=== PATIENT | female | born 1985 | race Caucasian/White ===

== ENCOUNTER 2016-04-03 11:58 | Emergency (ER) | payer MEDICAID ==
[~2016-04-03] VITALS: Ht 162.6 cm; Wt 68.0 kg
[~2016-04-03 11:58] MED LIST: BACTRIM DS 8001 TA1 PO; CIPRO 500MG TA500 MG PO; DOXYCYCLINE HY100 M4 PO; ETODOLAC400 MG PO; FLEXERIL10 MG PO; GABAPENTIN300 MG PO; GABAPENTIN400 MG PO; INDOCIN25 M2 PO; KEFLEX 500MG.500 MG PO; LORTAB 5/500 501 TAB PO; MOTRIN400 MG PO; MULTI VITAMINS1 TA1 PO; Mobic7.5 MG PO; NORCO 325 MG-51 TAB PO; PERCOCET 5/3251 EACH PO; PREDNISONE 10MG10 MG PO; PREDNISONE 20MG20 MG PO; PRENATAL GUMMIES; PRENATAL PLUS1 TA1 PO; PYRIDIUM 200MG200 MG PO; RANITIDINE HCL150 MG PO; RANITIDINE150 M1 PO; SEPTRA DS 800 M1 TAB PO; SUBOXONE 2 MG-01 TAB SL; SUBUTEX8 M1 SL; TESSALON PERLE100 MG PO; TRAMADOL 50MG T50 MG PO; TRAMADOL50 M1 PO; VALIUM 5MG TABLE5 MG PO; VOLTAREN75 MG PO; XANAX 1MG TABLET1 MG PO; ZITHROMAX Z PA250 MG PO; ZOFRAN4 MG PO
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
[2016-04-03] MEDS ORDERED: ETODOLAC300 M1 PO (13:20)
[2016-04-03 13:32] VITALS: BP 121/76
== END 2016-04-03 13:33 | disposition home or self-care (01) ==
LOC: ER 11:58
DX: S02.2XXA Fracture of nasal bones, initial encounter for closed fracture (principal); S30.0XXA Contusion of lower back and pelvis, initial encounter; K21.9 Gastro-esophageal reflux disease without esophagitis; Z72.0 Tobacco use

== ENCOUNTER 2016-08-01 20:41 | Emergency (ER) | payer MEDICAID ==
[~2016-08-01] VITALS: Ht 162.6 cm; Wt 68.0 kg
[~2016-08-01 20:41] MED LIST changes: +ETODOLAC300 M1 PO
--- OUTSIDE RECORDS SUMMARY | 2016-08-01 20:52 | External Medical Summary Rpt ---
Author Author , Organization [employer] Address Unknown Phone Unavailable Care Team Providers Care Apartment Property Manager Name Role Phone [facility], [facility] Purpose Continuity of Care Document - 08-27-2012 through 2016 Problems Code Diagnosis DOS Provider Status [id number] [facility] Allergies, Adverse Reactions, Alerts Type Drug Allergy Adverse Reaction to Substance Substance Reaction Severity Penicillin Unknown Unknown Diphenhydramine Unknown Unknown Codeine Unknown Unknown Penicillin V Unknown Unknown Tramadol Unknown Unknown Citalopram DIARRHEA Unknown Vital Signs 08-27-2012 19:18 Name Value Interpretat Reference Comment ion Range BP 86 mm[Hg] Diastolic BP Systolic 122 mm[Hg] Heart 88 /min Rate/Pulse O2% 98 % Respiratory 16 /min Rate Encounters Encounter Start End Date Code Location Performer Type Date Emergency HANSA TRIPATHI MD (ER) 3 17:49 3 19:24 [facility]
--- OUTSIDE RECORDS SUMMARY | 2016-08-01 20:52 | External Medical Summary Rpt ---
Demographics Preferred Language German Marital Status Unknown Yarsani Affiliation Unknown Race Unknown Ethnic Group Unknown Author Author , Organization [employer] Address Unknown Phone Unavailable Purpose Continuity of Care Document - through 2016 Immunization No patient found.
--- OUTSIDE RECORDS SUMMARY | 2016-08-01 20:52 | External Medical Summary Rpt ---
Author Author [employer] Organization [employer] Address Unknown Phone Unavailable Purpose Continuity of Care Document - through 2016
--- OUTSIDE RECORDS SUMMARY | 2016-08-01 20:52 | External Medical Summary Rpt ---
Author Author RENNY Maldonado, [employer] Organization [employer] Address Unknown Phone Unavailable
--- OUTSIDE RECORDS SUMMARY | 2016-08-01 20:52 | External Medical Summary Rpt ---
Demographics Preferred Language Djiboutian Marital Status Unknown Yarsanism Affiliation Unknown Race Unknown Ethnic Group Unknown Author Author , Organization [employer] Address Unknown Phone Unavailable Purpose Continuity of Care Document - through 2016 Immunization No patient found.
--- OUTSIDE RECORDS SUMMARY | 2016-08-01 20:52 | External Medical Summary Rpt ---
Author Author , Organization [employer] Address Unknown Phone Unavailable Care Team Providers Care Senior Treasury Analyst Name Role Phone [facility], [facility] Purpose Continuity of Care Document - 08-27-2012 through 2016 Problems Code Diagnosis DOS Provider Status [id number] [facility] Allergies, Adverse Reactions, Alerts Type Drug Allergy [...] TRIPATHI MD (ER) 3 17:49 3 19:24 [facility]
[2016-08-01] MEDS ORDERED: SUBOXONE 8 MG-21 FIL PO (20:57)
[2016-08-01] MEDS ORDERED: BUPRENORPHINE H1 TAB SL (20:58)
--- NOTE | 2016-08-01 21:00 | Emergency Room Report ---
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 WORSE WITH DEEP RESPIRATION. C/O NAUSEA. NO DIAPHORESIS. 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 N Clinical Suspician of Infection? N Mental Status: 1 - Regular (Normal Baseline) Sepsis Risk:Low Sepsis Risk Have you (or family members/close friends) recently traveled outside the [place]? N If Yes, where/when: Have you had exposure to infectious disease within the past month? N TB? Other? Specify: Source patient, RN notes reviewed, family, old records Exam Limitations no limitations Comment onset about 1 hr ago of ant lt chest pain with no rash or trauma and pain worse with palpatation - no ht disease and was recently rx for cap - Cardiac Chest Pain Chest pain indicative of cardiac No Timing/Duration this evening Severity moderate ALLERGIES Coded Allergies: Penicillins (08/10/15) codeine (08/08/15) diphenhydramine (From BENADRYL) (08/08/15) Home Medications Active Scripts Etodolac 300 MG PO BID #14 CAPSULE Prov: 04/03/16 Reported Medications BUPRENORPHINE HCL/NALOXONE HCL (Suboxone 8 MG-2 MG Sl Film) 8 mg PO BID BUPRENORPHINE HCL/NALOXONE HCL (Buprenorphin-Naloxon 8-2 MG Sl) 1 TAB SL BID #14 Gabapentin 400 MG PO BID History Medical History General CAD? No Angina: No [place]: No Hypertension? No Hyperlipidemia? No CHF? No DVT? No PE? No COPD? No Asthma? No Anemia? No GERD? Yes Gastric ulcers? No GI Bleed? No Hernia? No Thyroid Problems? No Hypothyroidism? No CVA? No Seizures? No Diabetes? No Renal Insuffiency? No End Stage Renal Disease? No UTI? No Stones? No BPH? No GB Disease: No Nephritic Syndrome? No Asplenia? No Hepatitis? Yes Sickle Cell Disease? No Arthritis? No Migraines? No Cataracts? No Glaucoma? No MRSA? No HIV? No TB? No Anxiety? No Depression? No Cancer? Yes Site: OVARIAN CANCER More? 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 Respiratory denies cough, denies shortness of breath, denies wheezing Cardiovascular see HPI, chest pain, denies palpitations, denies syncope Gastrointestinal denies abdominal pain, denies diarrhea, denies vomiting Genitourinary denies: dysuria, frequency, hesitancy, hematuria. Musculoskeletal denies joint pain, denies joint swelling, denies neck pain Skin denies rash Psychiatric/Neurological denies headache, denies seizure Physical Exam Vital Signs Vital Signs Date Time Temp Pulse Resp B/P Pulse O2 O2 Flow FiO2 Ox Delivery Rate 08/01 2246 66 18 103/69 95 / 2214 68 18 103/66 96 08/01 2138 70 18 121/49 95 08/01 2043 97.7 73 18 125/73 95 - WBC >12,000 or <4,000 or 10% bands? 2 or more SIRS Criteria Met? B/P:103/69 MAP:90 Creatinine >2.0? UA output<0.5ml/kg/hr for 2 hrs? Platelet count >100,000? Lactate >2.0mmol/1? INR >1.2 or PTT > than 60 sec? Evidence of Organ Dysfunction? Provider documented clinical suspician of infection? N Sepsis Criteria Count: 0 Sepsis Risk: Low Sepsis Risk General Appearance no apparent distress Eye Exam - bilateral eye PERRL, bilateral eye EOMI Ear, Nose, Throat normal ENT inspection Neck supple Respiratory Status No: respiratory distress. Lung Sounds bilateral: lungs clear. 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 No Results/Orders Laboratory Tests 08/01/162047: Sodium 142, Potassium 4.1, Chloride 104, Carbon Dioxide 32, BUN 7, Creatinine 0.8, Estimated Creat Clear 108, Estimated GFR (MDRD) 83, Glucose 62 L, Calcium 9.1, Total Bilirubin 0.3, AST 86 H, ALT 122 H, Alkaline Phosphatase 90, Creatine Kinase 88, CK-MB (CK-2) Rel Index 0.8, CK and CKMB Interp 0.7, Troponin I < 0.02, Total Protein 7.4, Albumin 3.7, Globulin 3.7 H, Albumin/Globulin Ratio 1.0 L, WBC 9.2, RBC 4.94, Hgb 14.8, Hct 45.2, MCV 91.4, RDW 13.6, Plt Count 190, MPV 6.2 L, Gran % 62.8, Gran # 5.8, Lymphocytes % 30.3, Monocytes % 4.2, Eosinophils % 2.5, Basophils % 0.3, Lymphocytes # 2.8, Monocytes # 0.4, Eosinophils # 0.2, Basophils # 0.0, PUBS MCHC 32.8, MCH 30.0 Current Medication Orders Sig/Tamiko Start time Last Medication Dose Route Stop Time Status Admin Aspirin 325 MG ONCE ONE 08/01 2099 DC 08/01 PO 08/01 Sodium Chloride 10 ML PRN PRN 08/01 2099 AC IV 08/02 2052 Aspirin 0 .STK-MED ONE 08/02 2043 DC .ROUTE Orders Procedure Date/time Status TROPONIN I 08/01 2238 Active ELECTROCARDIOGRAM REQUEST 08/01 2052 Active CHEST-PORTABLE 08/01 2052 Active IV SALINE LOCK 08/01 2052 Active MAILROOM PERSONNEL 08/01 2052 Active CBC WITH AUTO DIFF 08/01 2052 Complete CARDIAC ENZYMES 08/01 2052 Complete CHEM 12 PROFILE 08/01 2052 Complete CM/EKG CM/belt sander Rhythm Normal Sinus Rhythm EKG non-spec. ST/Twave chgs XRAY/CT/US XRAY/CT/US XRAY chest XR interpretation by reviewed by me Xray Results normal/NAD Departure Departure Time of Disposition 230 Disposition DC Home or Self Care(routine) Clinical Impression Primary Impression: Chest pain Qualifiers: Chest pain type: unspecified Qualified Code: R07.9 - Chest pain, unspecified Condition STABLE Referrals Sebastián VITAL,Noah Sam (Family) Patient Instructions DI for Atypical Chest Pain Additional Instructions call pcp for follow up Discharge Counseling Counseled pt/family regarding diagnosis, test results, medications/RX, follow up needs ED Critical Care Critical Care No at [id number]
--- NOTE | 2016-08-01 21:00 | Emergency Room Report ---
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 WORSE WITH DEEP RESPIRATION. C/O NAUSEA. NO DIAPHORESIS. 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 N Clinical Suspician of Infection? N Mental Status: 1 - Regular (Normal Baseline) Sepsis Risk:Low Sepsis Risk Have you (or family members/close friends) recently traveled outside the [place]? N If Yes, where/when: Have you had exposure to infectious disease within the past month? N TB? Other? Specify: Source patient, RN notes reviewed, family, old records Exam Limitations no limitations Comment onset about 1 hr ago of ant lt chest pain with no rash or trauma and pain worse with palpatation - no ht disease and was recently rx for cap - Cardiac Chest Pain Chest pain indicative of cardiac No Timing/Duration this evening Severity moderate ALLERGIES Coded Allergies: Penicillins (08/10/15) codeine (08/08/15) diphenhydramine (From BENADRYL) (08/08/15) Home Medications Active Scripts Etodolac 300 MG PO BID #14 CAPSULE Prov: 04/03/16 Reported Medications BUPRENORPHINE HCL/NALOXONE HCL (Suboxone 8 MG-2 MG Sl Film) 8 mg PO BID BUPRENORPHINE HCL/NALOXONE HCL (Buprenorphin-Naloxon 8-2 MG Sl) 1 TAB SL BID #14 Gabapentin 400 MG PO BID History Medical History General CAD? No Angina: No [place]: No Hypertension? No Hyperlipidemia? No CHF? No DVT? No PE? No COPD? No Asthma? No Anemia? No GERD? Yes Gastric ulcers? No GI Bleed? No Hernia? No Thyroid Problems? No Hypothyroidism? No CVA? No Seizures? No Diabetes? No Renal Insuffiency? No End Stage Renal Disease? No UTI? No Stones? No BPH? No GB Disease: No Nephritic Syndrome? No Asplenia? No Hepatitis? Yes Sickle Cell Disease? No Arthritis? No Migraines? No Cataracts? No Glaucoma? No MRSA? No HIV? No TB? No Anxiety? No Depression? No Cancer? Yes Site: OVARIAN CANCER More? 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 Respiratory denies cough, denies shortness of breath, denies wheezing Cardiovascular see HPI, chest pain, denies palpitations, denies syncope Gastrointestinal denies abdominal pain, denies diarrhea, denies vomiting Genitourinary denies: dysuria, frequency, hesitancy, hematuria. Musculoskeletal denies joint pain, denies joint swelling, denies neck pain Skin denies rash Psychiatric/Neurological denies headache, denies seizure Physical Exam Vital Signs Vital Signs Date Time Temp Pulse Resp B/P Pulse O2 O2 Flow FiO2 Ox Delivery Rate 08/01 2246 66 18 103/69 95 / 2214 68 18 103/66 96 08/01 2138 70 18 121/49 95 08/01 2043 97.7 73 18 125/73 95 - WBC >12,000 or <4,000 or 10% bands? 2 or more SIRS Criteria Met? B/P:103/69 MAP:90 Creatinine >2.0? UA output<0.5ml/kg/hr for 2 hrs? Platelet count >100,000? Lactate >2.0mmol/1? INR >1.2 or PTT > than 60 sec? Evidence of Organ Dysfunction? Provider documented clinical suspician of infection? N Sepsis Criteria Count: 0 Sepsis Risk: Low Sepsis Risk General Appearance no apparent distress Eye Exam - bilateral eye PERRL, bilateral eye EOMI Ear, Nose, Throat normal ENT inspection Neck supple Respiratory Status No: respiratory distress. Lung Sounds bilateral: lungs clear. 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 No Results/Orders Laboratory Tests 08/01/162047: Sodium 142, Potassium 4.1, Chloride 104, Carbon Dioxide 32, BUN 7, Creatinine 0.8, Estimated Creat Clear 108, Estimated GFR (MDRD) 83, Glucose 62 L, Calcium 9.1, Total Bilirubin 0.3, AST 86 H, ALT 122 H, Alkaline Phosphatase 90, Creatine Kinase 88, CK-MB (CK-2) Rel Index 0.8, CK and CKMB Interp 0.7, Troponin I < 0.02, Total Protein 7.4, Albumin 3.7, Globulin 3.7 H, Albumin/Globulin Ratio 1.0 L, WBC 9.2, RBC 4.94, Hgb 14.8, Hct 45.2, MCV 91.4, RDW 13.6, Plt Count 190, MPV 6.2 L, Gran % 62.8, Gran # 5.8, Lymphocytes % 30.3, Monocytes % 4.2, Eosinophils % 2.5, Basophils % 0.3, Lymphocytes # 2.8, Monocytes # 0.4, Eosinophils # 0.2, Basophils # 0.0, PUBS MCHC 32.8, MCH 30.0 Current Medication Orders Sig/Tamiko Start time Last Medication Dose Route Stop Time Status Admin Aspirin 325 MG ONCE ONE 08/01 2099 DC 08/01 PO 08/01 Sodium Chloride 10 ML PRN PRN 08/01 2099 AC IV 08/02 2052 Aspirin 0 .STK-MED ONE 08/02 2043 DC .ROUTE Orders Procedure Date/time Status TROPONIN I 08/01 2238 Active ELECTROCARDIOGRAM REQUEST 08/01 2052 Active CHEST-PORTABLE 08/01 2052 Active IV SALINE LOCK 08/01 2052 Active TRANSMISSION TECHNICIAN 08/01 2052 Active CBC WITH AUTO DIFF 08/01 2052 Complete CARDIAC ENZYMES 08/01 2052 Complete CHEM 12 PROFILE 08/01 2052 Complete CM/EKG CM/fitter's assistant Rhythm Normal Sinus Rhythm EKG non-spec. ST/Twave chgs XRAY/CT/US XRAY/CT/US XRAY chest XR interpretation by reviewed by me Xray Results normal/NAD Departure Departure Time of Disposition 230 Disposition DC Home or Self Care(routine) Clinical Impression Primary Impression: Chest pain Qualifiers: Chest pain type: unspecified Qualified Code: R07.9 - Chest pain, unspecified Condition STABLE Referrals Sebastián VITAL,Noah Sam (Family) Patient Instructions DI for Atypical Chest Pain Additional Instructions call pcp for follow up Discharge Counseling Counseled pt/family regarding diagnosis, test results, medications/RX, follow up needs ED Critical Care Critical Care No at 230
--- OUTSIDE RECORDS SUMMARY | 2016-08-01 21:00 | External Medical Summary Rpt ---
Author Author , Organization [employer] Address Unknown Phone Unavailable Care Team Providers Care Pumper Gauger Name Role Phone [facility], [facility] Purpose Continuity of Care Document - 08-27-2012 through 2016 Problems Code Diagnosis DOS Provider Status [id number] [facility] Allergies, Adverse Reactions, Alerts Type Drug Allergy [...] TRIPATHI MD (ER) 3 17:49 3 19:24 [facility]
--- OUTSIDE RECORDS SUMMARY | 2016-08-01 21:00 | External Medical Summary Rpt ---
Author Author , Organization [employer] Address Unknown Phone Unavailable Care Team Providers Care Airplane Navigator Name Role Phone [facility], [facility] Purpose Continuity of Care Document - 08-27-2012 through 2016 Problems Code Diagnosis DOS Provider Status [id number] [facility] Allergies, Adverse Reactions, Alerts Type Drug [...] TRIPATHI MD (ER) 3 17:49 3 19:[address] [facility]
--- OUTSIDE RECORDS SUMMARY | 2016-08-01 21:01 | External Medical Summary Rpt ---
Demographics Preferred Language Finnish Marital Status Unknown Jehovah'S Witness Affiliation Unknown Race Unknown Ethnic Group Unknown Author Author , Organization [employer] Address Unknown Phone Unavailable Purpose Continuity of Care Document - through 2016 Immunization No patient found.
--- OUTSIDE RECORDS SUMMARY | 2016-08-01 21:01 | External Medical Summary Rpt ---
Demographics Preferred Language Kazakh Marital Status Unknown Nondenominational Affiliation Unknown Race Unknown Ethnic Group Unknown Author Author , Organization [employer] Address Unknown Phone Unavailable Purpose Continuity of Care Document - through 2016 Immunization No patient found.
[2016-08-01 21:04] LABS: HEMOGLOBIN 14.8 g/dL (12.2-16.2); LYMPH # 2.8 K/mm3 (0.7-4.5); LYMPH % 30.3 % (10-50.0)
[2016-08-01 21:44] LABS: BUN 7 mg/dL (7-18)
[2016-08-01 21:49] LABS: GFR (ESTIMATED) 83 ML/MIN (59-)
[2016-08-01 23:11] VITALS: BP 103/69
--- NOTE | 2016-08-02 05:29 | RADIOLOGY REPORT PS360 ---
CHEST-PORTABLE HISTORY: LEFT SIDED ACUTE ONSET CHEST PAIN ORDERING PHYSICIAN: Jake Lowery MD PATIENT AGE: 31 years COMPARISON: 12/03/2015 FINDINGS: The cardiomediastinal silhouette and pulmonary vascularity are within normal limits. The lungs are clear without infiltrates, suspicious nodules, or pleural effusions. No acute bony abnormalities. Multiple calcified granulomas as before IMPRESSION: No change with no acute finding
== END 2016-08-01 23:12 | disposition home or self-care (01) ==
LOC: ER 20:41
PROVIDERS: Emergency Medicine
DX: R07.9 Chest pain, unspecified (principal); Z72.0 Tobacco use; K21.9 Gastro-esophageal reflux disease without esophagitis

== ENCOUNTER 2016-08-02 16:10 | Emergency (ER) | payer MEDICAID ==
[~2016-08-02] VITALS: Ht 162.6 cm; Wt 68.0 kg
[~2016-08-02 16:10] MED LIST changes: +BUPRENORPHINE H1 TAB SL; +SUBOXONE 8 MG-21 FIL PO
--- NOTE | 2016-08-02 16:32 | Emergency Room Report ---
History of Present Illness Time Seen by [id number] Presenting Problem in Triage Pt arrived:Walked Presenting Problem:PT SEEN IN ER YESTERDAY FOR CHEST PAIN AND TOLD TO F/UP WITH . SHE WENT TO DR HUGO AND THEY SENT HER TO ER. 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 N Clinical Suspician of Infection? N Mental Status: 1 - Regular (Normal Baseline) Sepsis Risk:Low Sepsis Risk Have you (or family members/close friends) recently traveled outside the [place]? N If Yes, where/when: Have you had exposure to infectious disease within the past month? TB? Other? Specify: Source patient, RN notes reviewed, RN/MD Exam Limitations no limitations Comment This is a 31-year-old female patient known with history of drug addiction, currently on Suboxone, presented emergency room with chest pain, onset 24 hours ago. Patient was seen in this emergency room yesterday, and she was discharged home. She went to Dr. Sandoval's clinic today but she was referred back to the emergency room for reevaluation for chest pain. Patient denies any shortness of breath, her chest pain appears to be pleuritic in nature, worse with deep inspiration. Patient denies any radiation of her chest pain. She denies any previous cardiac history. She is a smoker, denies any recent travel or exposure to sick contacts. ALLERGIES Coded Allergies: Penicillins (08/10/15) codeine (08/08/15) diphenhydramine (From BENADRYL) (08/08/15) Home Medications Active Scripts Etodolac 300 MG PO BID #14 CAPSULE Prov: 04/03/16 Reported Medications BUPRENORPHINE HCL/NALOXONE HCL (Suboxone 8 MG-2 MG Sl Film) 8 mg PO BID BUPRENORPHINE HCL/NALOXONE HCL (Buprenorphin-Naloxon 8-2 MG Sl) 1 TAB SL BID #14 Gabapentin 400 MG PO BID History Medical History General CAD? No Angina: No [place]: No Hypertension? No Hyperlipidemia? No CHF? No DVT? No PE? No COPD? No Asthma? No Anemia? No GERD? Yes Gastric ulcers? No GI Bleed? No Hernia? No Thyroid Problems? No Hypothyroidism? No CVA? No Seizures? No Diabetes? No Renal Insuffiency? No End Stage Renal Disease? No UTI? No Stones? No BPH? No GB Disease: No Nephritic Syndrome? No Asplenia? No Hepatitis? Yes Sickle Cell Disease? No Arthritis? No Migraines? No Cataracts? No Glaucoma? No MRSA? No HIV? No TB? No Anxiety? No Depression? No Cancer? Yes Site: OVARIAN CANCER More? 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 1 Week Ago Family History Family Hx Diabetes Yes CAD Yes Hypertension Yes Hyperlipidemia Yes Cancer Yes TB No Social History Smoking Hx Smoker: Current Every Day Smoker Tobacco: Yes Type Cigarettes Packs/day < 1 Pack Alcohol Alcohol: No Review of Systems All Other Systems Reviewed and Negative Cardiovascular chest pain Physical Exam Vital Signs Vital Signs Date Time Temp Pulse Resp B/P Pulse O2 O2 Flow FiO2 Ox Delivery Rate 08/02 1739 85 14 111/56 98 08/02 1613 98.8 87 20 129/76 95 General Appearance normal appearance, WD/WN, no apparent distress Neck normal inspection, non-tender, supple, full range of motion Respiratory Status Yes: trachea midline, chest symmetrical, tender on palpation (midsternal). No: respiratory distress. Lung Sounds bilateral: normal breath sounds, lungs clear. 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 No Comment On reevaluation patient appears medically stable, minimally symptomatic, in no acute distress. Advised patient results obtained, need to follow-up with cardiology and gastroenterology, per discharge instructions. Patient chest pain seems to be pleuritic in nature advised patient to alternate Motrin with Tylenol, as needed for pain. Patient instructed / consuled to quit smoking. Results/Orders Laboratory Tests 08/02/16 1615: B-Natriuretic Peptide 13 05/04/17 1615: Sodium 138, Potassium 3.9, Chloride 102, Carbon Dioxide 30, BUN 4 L, Creatinine 0.8, Estimated Creat Clear 108, Estimated GFR (MDRD) 83, Glucose 85, Calcium 8.9 , Total Bilirubin 0.4, AST 99 H, ALT 140 H, Alkaline Phosphatase 91, Creatine Kinase 75, CK and CKMB Interp 0.6, Troponin I < 0.02, Total Protein 7.5, Albumin 3.8, Globulin 3.7 H, Albumin/Globulin Ratio 1.0 L, D-Dimer < 100, WBC 10.5, RBC 5.10, Hgb 15.2, Hct 45.8, MCV 89.7, RDW 13.7, Plt Count 188, MPV 5.7 L, Gran % 70.4, Gran # 7.4, Lymphocytes % 22.9, Monocytes % 3.3, Eosinophils % 1.6, Basophils % 0.3, Lymphocytes # 2.4, Monocytes # 0.4, Eosinophils # 0.2, Basophils # 0.0, PUBS MCHC 33.2, MCH 29.8 Current Medication Orders Sig/Tamiko Start time Last Medication Dose Route Stop Time Status Admin Aspirin 325 MG ONCE ONE 08/02 1630 DC 08/02 PO 08/02 1631 1630 Sodium Chloride 10 ML PRN PRN 08/02 1630 AC IV 08/03 1624 Aspirin 0 .STK-MED ONE 08/02 1628 DC .ROUTE Orders Procedure Date/time Status 12 LEAD EKG-GOSIA (INITIAL) 08/02 162 Active ELECTROCARDIOGRAM REQUEST 08/02 162 Active D-DIMER 08/02 162 Complete BRAIN NATRIURETIC PEPTIDE 08/02 162 Complete ELECTROCARDIOGRAM REQUEST 08/02 1625 Active IV SALINE LOCK 08/02 162 Active OXYGEN PER NURSE 08/02 1625 Active RACING MANAGER 08/02 162 Active TROPONIN I 08/02 162 Complete CPK 08/02 1625 Complete COMPLETE METABOLIC PANEL 08/02 1625 Complete CKMB 08/02 1625 Complete CBC WITH AUTO DIFF 08/02 1625 Complete CM/EKG CM/cushion padder Rhythm Normal Sinus Rhythm Rate 85 Ectopy No Comments No acute ischemic changes EKG rate, NSR, rhythm, no evid. of ischemic chgs, no ectopy, normal QRS, normal PA, no EKG for comparison, non-spec. ST/Twave chgs, ST elevation, ST depression, LBBB, RBBB, ectopy, abnormal Q waves XRAY/CT/US XRAY/CT/US XRAY chest XR interpretation by reviewed by me Xray Results no infiltrates, normal heart size, normal lung inflation sung Comment No acute disease Departure Departure Time of Disposition 1757 Disposition DC Home or Self Care(routine) Clinical Impression Primary Impression: Chest pain Qualifiers: Chest pain type: unspecified Qualified Code: R07.9 - Chest pain, unspecified Secondary Impressions: Hepatitis C Qualifiers: Viral hepatitis chronicity: unspecified Hepatic coma status: without hepatic coma Qualified Code: B19.20 - Unspecified viral hepatitis C without hepatic coma Pleurisy Condition STABLE Referrals Sebastián VITAL,Noah Sam (Family): Tomorrow-Call Office Call the office tomorrow and schedule an appointment with be seen the latest on Saturday, for mandatory reevaluation. Shahbaz Ng MD Patient Instructions DI for Atypical Chest Pain, DI for Hepatitis C Additional Instructions Please follow-up with Dr. Shahbaz Ng in the office, as instructed above. take one aspirin daily, quit smoking. Please follow-up with your reliner in [place] regarding her hepatitis C, at your earliest convenience Discharge Counseling Counseled pt/family regarding diagnosis, test results, medications/RX, home care, follow up needs Comment Please follow-up with Dr. Shahbaz Ng in the office, as instructed above. take one aspirin daily, quit smoking. ED Critical Care Critical Care No at 1800
--- NOTE | 2016-08-02 16:32 | Emergency Room Report ---
History of Present Illness Time Seen by [id number] Presenting Problem in Triage Pt arrived:Walked Presenting Problem:PT SEEN IN ER YESTERDAY FOR CHEST PAIN AND TOLD TO F/UP WITH . SHE WENT TO DR HUGO AND THEY SENT HER TO ER. 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 N Clinical Suspician of Infection? N Mental Status: 1 - Regular (Normal Baseline) Sepsis Risk:Low Sepsis Risk Have you (or family members/close friends) recently traveled outside the [place]? N If Yes, where/when: Have you had exposure to infectious disease within the past month? TB? Other? Specify: Source patient, RN notes reviewed, RN/MD Exam Limitations no limitations Comment This is a 31-year-old female patient known with history of drug addiction, currently on Suboxone, presented emergency room with chest pain, onset 24 hours ago. Patient was seen in this emergency room yesterday, and she was discharged home. She went to Dr. Sandoval's clinic today but she was referred back to the emergency room for reevaluation for chest pain. Patient denies any shortness of breath, her chest pain appears to be pleuritic in nature, worse with deep inspiration. Patient denies any radiation of her chest pain. She denies any previous cardiac history. She is a smoker, denies any recent travel or exposure to sick contacts. ALLERGIES Coded Allergies: Penicillins (08/10/15) codeine (08/08/15) diphenhydramine (From BENADRYL) (08/08/15) Home Medications Active Scripts Etodolac 300 MG PO BID #14 CAPSULE Prov: 04/03/16 Reported Medications BUPRENORPHINE HCL/NALOXONE HCL (Suboxone 8 MG-2 MG Sl Film) 8 mg PO BID BUPRENORPHINE HCL/NALOXONE HCL (Buprenorphin-Naloxon 8-2 MG Sl) 1 TAB SL BID #14 Gabapentin 400 MG PO BID History Medical History General CAD? No Angina: No [place]: No Hypertension? No Hyperlipidemia? No CHF? No DVT? No PE? No COPD? No Asthma? No Anemia? No GERD? Yes Gastric ulcers? No GI Bleed? No Hernia? No Thyroid Problems? No Hypothyroidism? No CVA? No Seizures? No Diabetes? No Renal Insuffiency? No End Stage Renal Disease? No UTI? No Stones? No BPH? No GB Disease: No Nephritic Syndrome? No Asplenia? No Hepatitis? Yes Sickle Cell Disease? No Arthritis? No Migraines? No Cataracts? No Glaucoma? No MRSA? No HIV? No TB? No Anxiety? No Depression? No Cancer? Yes Site: OVARIAN CANCER More? 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 Family History Family Hx Diabetes Yes CAD Yes Hypertension Yes Hyperlipidemia Yes Cancer Yes TB No Social History Smoking Hx Smoker: Current Every Day Smoker Tobacco: Yes Type Cigarettes Packs/day < 1 Pack Alcohol Alcohol: No Review of Systems All Other Systems Reviewed and Negative Cardiovascular chest pain Physical Exam Vital Signs Vital Signs Date Time Temp Pulse Resp B/P Pulse O2 O2 Flow FiO2 Ox Delivery Rate 08/02 1739 85 14 111/56 98 08/02 1613 98.8 87 20 129/76 95 General Appearance normal appearance, WD/WN, no apparent distress Neck normal inspection, non-tender, supple, full range of motion Respiratory Status Yes: trachea midline, chest symmetrical, tender on palpation (midsternal). No: respiratory distress. Lung Sounds bilateral: normal breath sounds, lungs clear. Cardiovascular normal exam, regular rate/rhythm, no peripheral edema Gastrointestinal normal bowel sounds, normal exam, non tender, soft, no organomegaly Extremities non-tender, normal range of motion, normal inspection Neurologic alert, piecer up II-XII nml as tested, normal exam, oriented x 3 Mental status normal mood/affect Skin intact, normal color, warm/dry Medical Decision Making LABS/Meds/Orders Pt receiving controlled substance in ED? No Comment On reevaluation patient appears medically stable, minimally symptomatic, in no acute distress. Advised patient results obtained, need to follow-up with cardiology and gastroenterology, per discharge instructions. Patient chest pain seems to be pleuritic in nature advised patient to alternate Motrin with Tylenol, as needed for pain. Patient instructed / consuled to quit smoking. Results/Orders Laboratory Tests 08/02/16 1615: B-Natriuretic Peptide 13 05/04/17 1615: Sodium 138, Potassium 3.9, Chloride 102, Carbon Dioxide 30, BUN 4 L, Creatinine 0.8, Estimated Creat Clear 108, Estimated GFR (MDRD) 83, Glucose 85, Calcium 8.9 , Total Bilirubin 0.4, AST 99 H, ALT 140 H, Alkaline Phosphatase 91, Creatine Kinase 75, CK and CKMB Interp 0.6, Troponin I < 0.02, Total Protein 7.5, Albumin 3.8, Globulin 3.7 H, Albumin/Globulin Ratio 1.0 L, D-Dimer < 100, WBC 10.5, RBC 5.10, Hgb 15.2, Hct 45.8, MCV 89.7, RDW 13.7, Plt Count 188, MPV 5.7 L, Gran % 70.4, Gran # 7.4, Lymphocytes % 22.9, Monocytes % 3.3, Eosinophils % 1.6, Basophils % 0.3, Lymphocytes # 2.4, Monocytes # 0.4, Eosinophils # 0.2, Basophils # 0.0, PUBS MCHC 33.2, MCH 29.8 Current Medication Orders Sig/Tamiko Start time Last Medication Dose Route Stop Time Status Admin Aspirin 325 MG ONCE ONE 08/02 1630 DC 08/02 PO 08/02 1631 1630 Sodium Chloride 10 ML PRN PRN 08/02 1630 AC IV 08/03 1624 Aspirin 0 .STK-MED ONE 08/02 1628 DC .ROUTE Orders Procedure Date/time Status 12 LEAD EKG-GOSIA (INITIAL) 08/02 162 Active ELECTROCARDIOGRAM REQUEST 08/02 162 Active D-DIMER 08/02 162 Complete BRAIN NATRIURETIC PEPTIDE 08/02 162 Complete ELECTROCARDIOGRAM REQUEST 08/02 1625 Active IV SALINE LOCK 08/02 162 Active OXYGEN PER NURSE 08/02 1625 Active GRADUATE CIVIL ENGINEER 08/02 162 Active TROPONIN I 08/02 162 Complete CPK 08/02 1625 Complete COMPLETE METABOLIC PANEL 08/02 1625 Complete CKMB 08/02 1625 Complete CBC WITH AUTO DIFF 08/02 1625 Complete CM/EKG CM/shared services representative Rhythm Normal Sinus Rhythm Rate 85 Ectopy No Comments No acute ischemic changes EKG rate, NSR, rhythm, no evid. of ischemic chgs, no ectopy, normal QRS, normal GA, no EKG for comparison, non-spec. ST/Twave chgs, ST elevation, ST depression, LBBB, RBBB, ectopy, abnormal Q waves XRAY/CT/US XRAY/CT/US XRAY chest XR interpretation by reviewed by me Xray Results no infiltrates, normal heart size, normal lung inflation sung Comment No acute disease Departure Departure Time of Disposition 1757 Disposition DC Home or Self Care(routine) Clinical Impression Primary Impression: Chest pain Qualifiers: Chest pain type: unspecified Qualified Code: R07.9 - Chest pain, unspecified Secondary Impressions: Hepatitis C Qualifiers: Viral hepatitis chronicity: unspecified Hepatic coma status: without hepatic coma Qualified Code: B19.20 - Unspecified viral hepatitis C without hepatic coma Pleurisy Condition STABLE Referrals Sebastián VITAL,Noah Sam (Family): Tomorrow-Call Office Call the office tomorrow and schedule an appointment with be seen the latest on Saturday, for mandatory reevaluation. Shahbaz Ng MD Patient Instructions DI for Atypical Chest Pain, DI for Hepatitis C Additional Instructions Please follow-up with Dr. Shahbaz Ng in the office, as instructed above. take one aspirin daily, quit smoking. Please follow-up with your statement clerks manager in [place] regarding her hepatitis C, at your earliest convenience Discharge Counseling Counseled pt/family regarding diagnosis, test results, medications/RX, home care, follow up needs Comment Please follow-up with Dr. Shahbaz Ng in the office, as instructed above. take one aspirin daily, quit smoking. ED Critical Care Critical Care No at 1800
[2016-08-02 16:40] LABS: HEMOGLOBIN 15.2 g/dL (12.2-16.2); LYMPH # 2.4 K/mm3 (0.7-4.5); LYMPH % 22.9 % (10-50.0)
[2016-08-02 17:08] LABS: BUN 4 mg/dL (7-18); GFR (ESTIMATED) 83 ML/MIN (59-)
--- NOTE | 2016-08-02 17:16 | RADIOLOGY REPORT PS360 ---
CHEST-PORTABLE HISTORY: chets pain ORDERING PHYSICIAN: Ad Euceda MD PATIENT AGE: 31 years COMPARISON: 08/01/2016 FINDINGS: The cardiomediastinal silhouette and pulmonary vascularity are within normal limits. The lungs are clear without infiltrates, suspicious nodules, or pleural effusions. No acute bony abnormalities. Multiple calcified granulomas are present as before. No evidence of pneumothorax IMPRESSION: No change with no acute finding, old granulomatous disease
[2016-08-02 18:05] VITALS: BP 111/56
== END 2016-08-02 18:05 | disposition home or self-care (01) ==
LOC: ER 16:10
PROVIDERS: Emergency Medicine
DX: R07.89 Other chest pain (principal); B19.20 Unspecified viral hepatitis C without hepatic coma; R09.1 Pleurisy

== ENCOUNTER 2016-10-25 20:40 | Emergency (ER) | payer MEDICAID ==
[~2016-10-25] VITALS: Ht 162.6 cm; Wt 70.8 kg
--- OUTSIDE RECORDS SUMMARY | 2016-10-25 20:46 | External Medical Summary Rpt ---
Author Author RENNY Maldonado, RENNY Maldon[employer] Organization [employer] Address Unknown Phone Unavailable
--- OUTSIDE RECORDS SUMMARY | 2016-10-25 20:46 | External Medical Summary Rpt ---
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 HEPATIC COMA J45.909 UNSPECIFIED ASTHMA, UNCOMPLICAT ED K52.9 NONINFECTIV E GASTROENTER ITIS AND COLITIS, UNSPECIFIED N39.0 URINARY TRACT INFECTION, SITE NOT SPECIFIED N83.209 UNSPECIFIED OVARIAN CYST, UNSPECIFIED SIDE R07.9 CHEST PAIN, UNSPECIFIED R09.1 PLEURISY R10.11 RIGHT UPPER QUADRANT PAIN R10.9 UNSPECIFIED ABDOMINAL PAIN S39.012A STRAIN OF MUSCLE, FASCIA AND TENDON OF LOWER BACK, INIT S50.01XA CONTUSION OF RIGHT ELBOW, INITIAL ENCOUNTER S76.019A STRAIN OF MUSCLE, FASCIA AND TENDON OF UNSP HIP, INIT ENCNTR Allergies, Adverse Reactions, Alerts Type Drug Allergy [...] TRIPATHI MD (ER) 3 17:49 3 19:24 [facility]
--- OUTSIDE RECORDS SUMMARY | 2016-10-25 20:46 | External Medical Summary Rpt ---
Author Author , RENNY LAWSON Address Unknown Phone [email or web address] Care Team Providers Care Chart Changer Name Role Phone [facility], [facility] Purpose Continuity of Care Document - 08-27-2012 through 2016 Problems Code Diagnosis DOS Provider Status [id number] [facility] B19.20 UNSPECIFIED VIRAL HEPATITIS C [...] TRIPATHI MD (ER) 3 17:49 3 19:24 [facility]
--- OUTSIDE RECORDS SUMMARY | 2016-10-25 20:46 | External Medical Summary Rpt ---
Demographics Preferred Language Welsh Marital Status Unknown [employer] Affiliation Unknown Race Unknown Ethnic Group Unknown Author Author , DENISSE LAWSON Address Unknown Phone Immunization Unable to retrieve immunization data due to connection failure with Immunization Registry. Please try again later.
--- OUTSIDE RECORDS SUMMARY | 2016-10-25 20:46 | External Medical Summary Rpt ---
Demographics Preferred Language Malawian Marital Status Unknown [employer] Affiliation Unknown Race Unknown Ethnic Group Unknown Author Author , DENISSE LAWSON Address Unknown Phone Immunization Unable to retrieve immunization data due to connection failure with Immunization Registry. Please try again later.
--- NOTE | 2016-10-25 21:03 | Urgent Treatment Center Report ---
History of Present Issue Date/Time Seen by Provider 10/25/162102 Visit Reason Pt arrived:Walked Presenting Problem:PT STATES SHE FEELS LIKE SHE HAS CONGESTION OR SINUS INFECTION. Location if Accident: Onset of symptoms date/time:/ or onset unknown for:MEDICAL HX UNKNOWN Have you (or family members/close friends) recently traveled outside the [place]? N If Yes, where/when: Have you had exposure to infectious disease within the past month? TB? Other? Specify: c/o cough, chest congestion, rhinorrhea, PND, intermittent sung ear pressure x 2- 3 days. Feels started in head and has moved to chest. Occasional SOA and intermittent mild wheezing. + tobacco abuse. "not sure how much. I vape a lot now too". Feeling feverish. Hasn't checked temp. No known sick contacts. Source patient Exam Limitations no limitations ALLERGIES Coded Allergies: Penicillins (08/10/15) codeine (08/08/15) diphenhydramine (From BENADRYL) (08/08/15) Home Medications Reported Medications BUPRENORPHINE HCL/NALOXONE HCL (Suboxone 8 MG-2 MG Sl Film) 8 mg PO BID Gabapentin 400 MG PO BID History Medical History General CAD? No Angina: No MS: No Hypertension? No Hyperlipidemia? No CHF? No DVT? No PE? No COPD? No Asthma? No Anemia? No GERD? Yes Gastric ulcers? No GI Bleed? No Hernia? No Thyroid Problems? No Hypothyroidism? No CVA? No Seizures? No Diabetes? No Renal Insuffiency? No UTI? No Stones? No BPH? No GB Disease: No Nephritic Syndrome? No Asplenia? No Hepatitis? Yes Sickle Cell Disease? No Arthritis? No Migraines? No Cataracts? No Glaucoma? No MRSA? No HIV? No TB? No Anxiety? No Depression? No Cancer? Yes Site: OVARIAN CANCER More? Yes Additional hx: HEP C+ HEART MURMUR Immunization HX DT/Tetanus 1-4 Years Ago Flu Refused Pneumonia Never Had Surgical Hx Previous Surgery?Y RT BREAST LUMPECTOMYX3 RIGHT 5TH TOE PARTIAL-AMP C- section X 5 D&CX3 LEFT SALPINGECTOMY ECTOPT TUBAL Family History Family HX Diabetes Yes CAD Yes Hypertension Yes Hyperlipidemia Yes Cancer Yes TB No Social History Smoking Hx Smoker: Current Every Day Smoker Tobacco: Yes Type Cigarettes Packs/day < 1 Pack Alcohol Alcohol: No Review of Systems All Other Systems Reviewed and Negative Constitutional see HPI, denies malaise, denies weakness Eyes denies drainage ENT see HPI. denies: ear discharge, throat pain. Respiratory see HPI, other (sputum yellow/green) Cardiovascular denies chest pain, denies palpitations Gastrointestinal denies no symptoms reported Musculoskeletal denies other (aches) Skin denies rash Psychiatric/Neurological denies headache Physical Exam Vital Signs Vital Signs Date Time Temp Pulse Resp B/P Pulse O2 O2 Flow FiO2 Ox Delivery Rate 10/25 2126 98.0 80 20 96 10/26 2047 98.0 80 20 96 BP corrected: 115/68 (HARLAN CRANE APRN) General Appearance normal appearance, no apparent distress Eye Exam - bilateral eye normal exam Ear, Nose, Throat normal ENT inspection Neck non-tender, supple Respiratory Status Yes: trachea midline, chest symmetrical, non tender chest, non productive cough (once during visit). No: respiratory distress, use of accessory muscles, pain on inspiration, pain on expiration, productive cough. Lung Sounds anterior: lungs clear. posterior: lungs clear. bilateral: lungs clear. Cardiovascular regular rate/rhythm, no peripheral edema, no murmur Neurologic alert, no motor/sensory deficits, oriented x 3 Mental status normal mood/affect Skin normal color, warm/dry Lymphatic no adenopathy Medical Decision Making LABS/Meds/Orders Pt receiving controlled substance in ED? No Departure Departure Time of Disposition 2124 Disposition DC Home or Self Care(routine) Clinical Impression Primary Impression: Acute bronchitis Qualifiers: Bronchitis organism: unspecified organism Qualified Code: J20.9 - Acute bronchitis, unspecified Secondary Impressions: Tobacco abuse Condition STABLE Referrals Sebastián VITAL,Noah Sam (Family) Follow up IMMEDIATELY for new or worsening symptoms OR no noticeable improvement over the next 48-72 hours. 911 for difficulty breathing. Patient Instructions DI for Acute Bronchitis, How to Quit Smoking Additional Instructions STOP smoking * start antibiotic today. Be sure to complete entire prescription even if feeling better. * Monitor Temp. Tylenol every 4 hours as needed and/or ibuprofen every 6 hours as needed (as long as your primary care doctor has told you that it is ok to take both) for fever/aches/pain. ER if fever no less than 101 despite tylenol and ibuprofen * humidifier/vaporizer/hot steamy shower * Inhaler every 4-6 hours as needed like we discussed. If unsure how to use it, ask pharmacist to demonstrate how. Should help open airways and improve cough, wheezing, shortness of breath. * Mucinex during the day for your cough and cough suppressant only at night. Be sure to drink lots of water. Insurance may not cover a prescription of mucinex. Might be cheaper to get 400mg tablets and take 2 tablets morning, midday and evening all with lots of water. * Start steroid today. Helps with inflammation therefore, cough and wheezing. Follow directions on package. Rvwd side effects. Pt reports they have taken them before. Follow up IMMEDIATELY for new or worsening symptoms OR no noticeable improvement over the next 48-72 hours. 911 for difficulty breathing. Discharge Counseling Counseled pt/family regarding diagnosis, medications/RX, home care, follow up needs Prescriptions Current Visit Scripts ALBUTEROL (Proventil Hfa Inhaler) 1-2 PUFF IH Q4-6H PRN PRN SOA, wheezing #1 CAN Azithromycin (Zithromycin (Z-ONOFRE) 250MG Tab) 250 MG PO DAILY #6 TAB TAKE TWO (2) TABLETS ON DAY 1, THEN ONE (1) TABLET DAY #2 THRU #5 Methylprednisolone (Medrol Dose Onofre) 4 MG PO UD #1 ONOFRE TAKE DIRECTED ON PACKAGING at 2130
[2016-10-25] MEDS ORDERED: PROVENTIL0.09 MG/A1 IH (21:26)
[2016-10-25] MEDS ORDERED: MEDROL 4MG. DOSE4 MG PO (21:26)
[2016-10-25] MEDS ORDERED: ZITHROMAX Z PA250 MG PO (21:26)
[2016-10-25 21:27] VITALS: BP 15/68
== END 2016-10-25 21:28 | disposition home or self-care (01) ==
LOC: UTC 20:40
DX: J20.9 Acute bronchitis, unspecified (principal); Z72.0 Tobacco use; K21.9 Gastro-esophageal reflux disease without esophagitis

== ENCOUNTER → 2016-11-13 | Outpatient (CLI) | payer MEDICAID ==
[~2016-11-13] MED LIST changes: +MEDROL 4MG. DOSE4 MG PO; +PROVENTIL0.09 MG/A1 IH
[2016-11-13 19:35] LABS: AMPHETAMINES/METAMPHETAMINES NEGATIVE ng/mL (<1000)
== END ==
LOC: LAB 18:36
PROVIDERS: Nurse Practitioner Family
DX: J02.9 Acute pharyngitis, unspecified (principal)

== ENCOUNTER 2017-01-09 14:27 | Emergency (ER) | payer MEDICAID ==
[~2017-01-09] VITALS: Ht 162.6 cm; Wt 68.0 kg
--- NOTE | 2017-01-09 14:45 | Urgent Treatment Center Report ---
History of Present Issue Date/Time Seen by Provider 01/09/17 2967 Visit Reason Pt arrived:Walked Presenting Problem:PT STATES SHE FELL DOWN STEPS AT 0200. C/O LEFT SIDE PAIN Location if Accident:Home Onset of symptoms date/time:/ or onset unknown for:MEDICAL HX UNKNOWN Have you (or family members/close friends) recently traveled outside the [place]? N If Yes, where/when: Have you had exposure to infectious disease within the past month? TB? Other? Specify: States that she went outside around 1am this morning to check on her dogs and fell State that she fell down multiple steps and landed on her left side. State that she is now having pain in her left ribs, hip and upper leg State that she thought it would get better but it hasn't States that thinks she may have a yeast infection too because she is having some itching and white thick discharge ALLERGIES Coded Allergies: Penicillins (08/10/15) codeine (08/08/15) diphenhydramine (From BENADRYL) (08/08/15) Home Medications Reported Medications BUPRENORPHINE HCL/NALOXONE HCL (Suboxone 8 MG-2 MG Sl Film) 8 mg PO BID Gabapentin 400 MG PO BID History Medical History General CAD? No Angina: No CO: No Hypertension? No Hyperlipidemia? No CHF? No DVT? No PE? No COPD? No Asthma? No Anemia? No GERD? Yes Gastric ulcers? No GI Bleed? No Hernia? No Thyroid Problems? No Hypothyroidism? No CVA? No Seizures? No Diabetes? No Renal Insuffiency? No UTI? No Stones? No BPH? No GB Disease: No Nephritic Syndrome? No Asplenia? No Hepatitis? Yes Sickle Cell Disease? No Arthritis? No Migraines? No Cataracts? No Glaucoma? No MRSA? No HIV? No TB? No Anxiety? No Depression? No Cancer? Yes Site: OVARIAN CANCER More? Yes Additional hx: HEP C+ HEART MURMUR Immunization HX DT/Tetanus 1-4 Years Ago Flu Refused Pneumonia Never Had Surgical Hx Previous Surgery?Y RT BREAST LUMPECTOMYX3 RIGHT 5TH TOE PARTIAL-AMP C- section X 5 D&CX3 LEFT SALPINGECTOMY ECTOPT TUBAL MILIEU COORDINATOR Hx LMP 1 Week Ago Family History Family HX Diabetes Yes CAD Yes Hypertension Yes Hyperlipidemia Yes Cancer Yes TB No Social History Smoking Hx Smoker: Current Every Day Smoker Tobacco: Yes Type Cigarettes Packs/day < 1 Pack Alcohol Alcohol: No Review of Systems All Other Systems Reviewed and Negative Comment Pain in left ribs, left hip and left upper leg Physical Exam Vital Signs Vital Signs Date Time Temp Pulse Resp B/P Pulse O2 O2 Flow FiO2 Ox Delivery Rate 01/09 1434 98.4 97 20 126/72 98 General Appearance no apparent distress, Patient standing in room, no distress Respiratory Status Yes: trachea midline, chest symmetrical, non tender chest. No: respiratory distress. Cardiovascular normal exam, regular rate/rhythm, Pain in left rib area after falling down steps this morning around 1am Gastrointestinal normal bowel sounds, normal exam Extremities Pain in left hip, left upper leg after falling down steps this morning Neurologic alert, normal exam, oriented x 3 Comments State that she is having some vaginal itching and burning State that she has a yeast infection because she is having thick cottage cheese like discharge that has no smell but she is red and itchy in her vaginal area and she has had several yeast infections Medical Decision Making LABS/Meds/Orders Pt receiving controlled substance in ED? No Results/Orders Current Medication Orders Sig/Tamiko Start time Last Medication Dose Route Stop Time Status Admin Ibuprofen 800 MG ONCE ONE 01/09 1530 AC PO 01/09 1531 Orders Procedure Date/time Status UTC STABILIZE JOINT/AREA 01/09 1518 Active IEVS-ZNAQLDMTVP-VZ-3 VIEWS 01/09 1438 Active HIP LT 2-3V W/PELVIS IF PERFOR 01/09 1438 Active FEMUR-LT-2 VIEWS 01/09 1438 Active XRAY/CT/US XRAY/CT/US XRAY femur, hip, rib XR interpretation by reviewed by me Xray Results no fracture seen Comment Discussed with Dr Hernandez Departure Departure Time of Disposition 1521 Disposition DC Home or Self Care(routine) Clinical Impression Primary Impression: Fall Qualifiers: Encounter type: initial encounter Qualified Code: W19.XXXA - Unspecified fall, initial encounter Secondary Impressions: Contusion of rib Qualifiers: Encounter type: initial encounter Laterality: left Qualified Code: S20.212A - Contusion of left front wall of thorax, initial encounter Contusion, hip Qualifiers: Encounter type: initial encounter Laterality: left Qualified Code: S70.02XA - Contusion of left hip, initial encounter Condition STABLE Patient Instructions How To Perform RICE (Rest, Ice, Compress, Elevate) Discharge Counseling Counseled pt/family regarding diagnosis, test results, medications/RX, home care, follow up needs Prescriptions Current Visit Scripts Ibuprofen (Ibuprofen 800MG) 800 MG PO QIDP PRN pain #20 TAB Fluconazole (Diflucan 150MG) 150 MG PO DAILY #2 TAB Take one now and the second pill in 72 hours at 0324
[2017-01-09] MEDS ORDERED: DIFLUCAN150 MG PO (15:24)
[2017-01-09] MEDS ORDERED: IBUPROFEN800 MG PO (15:24)
--- NOTE | 2017-01-09 15:26 | RADIOLOGY REPORT PS360 ---
ONTY-LLIZFUFKZC-RC-3 VIEWS COMPARISON: PA and lateral chest 12/03/2015 HISTORY: Left Chest wall pain after falling down steps TECHNIQUE: PA chest and oblique views left RIBS FINDINGS: The lung edwards are well expanded and appear clear of infiltrate. The cardiac silhouette and vascularity are normal and is no pleural fluid. Left ribs 1 through 11 appear intact with no fracture seen. There is no pneumothorax. IMPRESSION: Negative PA chest and left RIBS
--- NOTE | 2017-01-09 15:29 | RADIOLOGY REPORT PS360 ---
HIP LT 2-3V W/PELVIS IF PERFOR COMPARISON: AP pelvis 11/05/2010 HISTORY: Pelvic and left hip pain after a fall down steps TECHNIQUE: AP pelvis, cone-down AP and frog-leg view left hip FINDINGS: The iliac bones appear intact and the pubic bones are normal. Both hips are normally articulated with no evidence of fracture. There are no soft tissue calcifications. The SI joints and symphysis pubis per normal. IMPRESSION: Negative AP pelvis and left hip
--- NOTE | 2017-01-09 15:30 | RADIOLOGY REPORT PS360 ---
FEMUR-LT-2 VIEWS COMPARISON: None HISTORY: Left hip the left thigh pain after a fall down steps TECHNIQUE: 4 views left hip and left femur FINDINGS: The femoral head and neck appear intact. The left femoral shaft appears intact with no fracture seen. The supracondylar femur is normal. The soft tissues are normal. IMPRESSION: Negative left hip and left femur
[2017-01-09 15:44] VITALS: BP 126/72
--- OUTSIDE RECORDS SUMMARY | 2017-01-12 12:02 | External Medical Summary Rpt | CCD ---
Author Author , RENNY LAWSON Address Unknown Phone [email or web address] Care Team Providers Care Clay Plant Treater Name Role Phone [facility], Purpose Continuity of Care Document - 08-27-2012 through 2016 Problems Code Diagnosis DOS Provider Status [id number] [facility] Allergies, Adverse Reactions, Alerts Type Drug [...] O2% 98 % Respiratory 16 /min Rate Results Labs Lab Lab Date Result Refere Interp Status Commen Order Detail nces retati t Range on Drugs identified in Urine by Screen method (11-13-2016 15:00) Ampheta NEGATIV <1000 complet mine 017 E ed [Presen 15:00 ce] in Urine by Screen method 11-Hydr NEGATIV <50 complet oxy 017 E ed delta-9 15:00 tetrahy drocann abinol [Presen ce] in Unspeci fied specime n Encounters Encounter Start End Date Code Location Performer Type Date Emergency HANSA TRIPATHI MD (ER) 3 17:49 3 19:24 [facility]
--- OUTSIDE RECORDS SUMMARY | 2017-01-12 12:02 | External Medical Summary Rpt | CCD ---
Author Author , RENNY LAWSON Address Unknown Phone Care Team Providers Care Analytics Consultant Name Role Phone [facility], [facility] Purpose Continuity of Care Document - 08-27-2012 through 2016 Problems Code Diagnosis DOS Provider Status [id number] [facility] Allergies, Adverse Reactions, Alerts Type Drug [...] TRIPATHI MD (ER) 3 17:49 3 19:24 [facility]
--- OUTSIDE RECORDS SUMMARY | 2017-01-12 12:03 | External Medical Summary Rpt ---
Author Author RENNY Maldonado, [employer] Organization [employer] Address Unknown Phone Unavailable Results Drugs identified in Urine by Screen method Observa Value Referen Units Interpr Notes Date tion ce etation Range Positive urine drug screen samples are stored for 7 days. Contact the Lab if confirmation of positives is needed. Ampheta NEGATIV <1000 ng/mL No No Nov 13 mine E informa informa 2016 [Presen tion in tion in 3:00 PM ce] in source source Urine data data by Screen method Barbitura <200 ng/mL No No Nov 13 [place] informati informati 2016 3:00 [Mass/vol on in on in PM ume] in source source Urine by data data Screen method Benzodiaz 200 ng/mL ng/mL No No Nov 13 epines informati informati 2016 3:00 [Mass/vol on in on in PM ume] in source source Serum or data data Plasma by Screen method Cocaine <300 ng/g No No Nov 13 [Mass/vol informati informati 2016 3:00 ume] in on in on in PM Unspecifi source source ed data data specimen Methadone <300 ng/mL No No Nov 13 informati informati 2016 3:00 [Mass/vol on in on in PM ume] in source source Unspecifi data data ed specimen Opiates <300 ng/mL No No Nov 13 [Mass/vol informati informati 2016 3:00 ume] in on in on in PM Unspecifi source source ed data data specimen Phencycli <25 ng/mL No No Nov 13 dine informati informati 2016 3:00 [Mass/vol on in on in PM ume] in source source Unspecifi data data ed specimen 11-Hydr NEGATIV <50 ng/mL No No Nov 13 oxy E informa informa 2017 delta-9 tion in tion in 3:00 PM source source tetrahy data data drocann abinol [Presen ce] in Unspeci fied specime n
--- OUTSIDE RECORDS SUMMARY | 2017-01-12 12:03 | External Medical Summary Rpt | CCD ---
Demographics Preferred Language Sami Marital Status Unknown Tenriism Affiliation Unknown Race Unknown Ethnic Group Unknown Author Author , RENNY LAWSON Address Unknown Phone Immunization No patient found.
--- OUTSIDE RECORDS SUMMARY | 2017-01-12 12:03 | External Medical Summary Rpt | CCD ---
Demographics Preferred Language Bulgarian Marital Status Unknown Restorationism Affiliation Unknown Race Unknown Ethnic Group Unknown Author Author , RENNY LAWSON Address Unknown Phone Immunization No patient found.
[2017-01-27] MEDS ORDERED: PREDNISONE 20MG20 MG PO (15:02)
[2017-01-27] MEDS ORDERED: PROVENTIL0.09 MG/Ac IH (15:02)
[2017-01-27] MEDS ORDERED: LEVAQUIN500 MG PO (15:02)
== END 2017-01-09 15:44 | disposition home or self-care (01) ==
LOC: UTC 14:27
DX: S20.212A Contusion of left front wall of thorax, initial encounter (principal); S70.02XA Contusion of left hip, initial encounter; Z88.0 Allergy status to penicillin; Z88.6 Allergy status to analgesic agent; K21.9 Gastro-esophageal reflux disease without esophagitis; F17.210 Nicotine dependence, cigarettes, uncomplicated; W19.XXXA Unspecified fall, initial encounter